=== PATIENT | female | born 1945 | race Caucasian/White ===

== ENCOUNTER 2017-07-29 10:14 | Emergency (ER) | payer MEDICARE, OTHER ==
[2017-07-29 10:46] LABS: BILIRUBIN,URINE NEGATIVE (NEGATIVE); PH,URINE 7.5 PH (5.0-7.5)
[2017-07-29 10:49] LABS: UA CHARGE (STRIP ONLY) YES; UR CULTURE IF IND NOT INDICATED
--- NOTE | 2017-07-29 11:57 | ED Physician Documentation ---
PD HPI ABD PAIN - Stated complaint Stated Complaint: R KIDNEY PAIN - Chief complaint Chief Complaint: Abd Pain - History obtained from History obtained from: Patient - History of Present Illness Timing - onset: How many days ago (2) Timing - duration: Days (2) Timing - details: Gradual onset, Still present, Waxing and waning Quality: Cramping, Aching, Pain Radiation: Right flank Improved by: No: Eating, Position Worsened by: No: Eating, Moving, Breathing, Position, Palpation Associated symptoms: No: Fever, Nausea, Vomiting, Diarrhea, Dysuria, Hematuria, Chest pain, Near syncope / syncope, Loss of appetite Similar symptoms before: Diagnosis (kidney stones) Recently seen: Not recently seen Review of Systems Constitutional: denies: Fever, Chills Nose: denies: Rhinorrhea / runny nose, Congestion Throat: denies: Sore throat Cardiac: denies: Chest pain / pressure, Palpitations Respiratory: denies: Dyspnea, Cough GI: denies: Abdominal Pain, Nausea, Vomiting, Diarrhea : denies: Dysuria, Frequency, Hematuria, Discharge Skin: denies: Rash, Lesions Neurologic: denies: Focal weakness, Numbness PD PAST MEDICAL HISTORY - Past Medical History Past Medical History: Yes Cardiovascular: Hypertension, High cholesterol GI: GERD : Kidney stones - Past Surgical History Past Surgical History: Yes Ortho: Spine surgery /[employer]: Hysterectomy - Present Medications Home Medications: Ambulatory Orders Medication Instructions Recorded Confirmed Atorvastatin [Lipitor] 1 tab PO DAILY 05/19/16 07/29/17 Losartan [Cozaar] 1 tab PO DAILY 05/19/16 07/29/17 HYDROcod/ACETAM 5/325 [[place] 5/325] 1 tab PO Q6H PRN #15 tablet 07/29/17 Methocarbamol [Robaxin] 500 mg PO TID #25 tablet 07/29/17 Naproxen [Naprosyn] 500 mg PO BID #20 tablet 07/29/17 - Allergies Allergies/Adverse Reactions: Allergies Allergy/AdvReac Type Severity Reaction Status Date / Time No Known Drug Allergies Allergy Verified 07/29/17 10:29 - Social History Does the pt smoke?: No Smoking Status: Never smoker Does the pt drink ETOH?: Yes Does the pt have substance abuse?: No - Immunizations Immunizations are current?: Yes PD ED PE NORMAL - Vitals Vital signs reviewed: Yes - General General: Alert and oriented X 3, No acute distress, Well developed/nourished - HEENT HEENT: Moist mucous membranes, Pharynx benign - Neck Neck: Supple, no meningeal sign, No adenopathy - Cardiac Cardiac: RRR, No murmur - Respiratory Respiratory: Clear bilaterally - Abdomen Abdomen: Normal bowel sounds, Soft, Non tender, Non distended, No organomegaly - Female Female : Deferred - Rectal Rectal: Deferred - Back Back: No spinal TTP, Other (right CVA tender without guarding. No rash nor sores.) - Derm Derm: Normal color, Warm and dry, No rash - Extremities Extremities: No deformity, No tenderness to palpate, Normal ROM s pain, No edema , No calf tenderness / cord - Neuro Neuro: Alert and oriented X 3, No motor deficit, Normal speech Results - Vitals Vitals: Vital Signs - 24 hr 07/29/17 07/29/17 07/29/17 10:27 11:59 13:22 Temperature 35.6 C L 36.9 C 36.6 C Heart Rate 68 63 76 Respiratory 14 16 16 Rate Blood Pressure 142/90 H 138/85 H 132/84 H O2 Saturation 100 95 99 07/29/17 14:18 Temperature 36.9 C Heart Rate 71 Respiratory 16 Rate Blood Pressure 133/60 H O2 Saturation 98 Oxygen O2 Source Room air - Labs Labs: Laboratory Tests 07/29/17 10:36 Urine Color YELLOW Urine Clarity CLEAR Urine pH 7.5 Ur Specific Shannon 1.010 Urine Protein NEGATIVE Urine Glucose (UA) NEGATIVE Urine Ketones NEGATIVE Urine Occult Blood NEGATIVE Urine Nitrite NEGATIVE Urine Bilirubin NEGATIVE Urine Urobilinogen 0.2 (NORMAL) Ur Leukocyte Esterase NEGATIVE Ur Microscopic Review NOT INDICATED Urine Culture Comments NOT INDICATED - Rads (name of study) KUB CT Radiology: Prelim report reviewed (no acute finding to support cause of pain), EMP read contemporaneously PD MEDICAL DECISION MAKING - ED course Complexity details: reviewed results, considered differential, d/w patient Departure - Departure Disposition: 01 Home, Self Care Clinical Impression: Right flank pain Condition: Stable Record reviewed to determine appropriate education?: Yes Instructions: ED Flank Pain Uncertain Cause Follow-Up: Waleska Ely MD [Primary Care Provider] - [facility] [place] [Provider Group] [facility] [Provider Group] Prescriptions: Naproxen [Naprosyn] 500 mg PO BID #20 tablet HYDROcod/ACETAM 5/325 [[place] 5/325] 1 tab PO Q6H PRN #15 tablet PRN Reason: Pain Methocarbamol [Robaxin] 500 mg PO TID #25 tablet Comments: The CT scan did not show any obvious cause for the pain. No kidney stones, abscesses, tumors, aneurysms, and the urine test did not show any signs of infection. Consider nerve pain or musculoskeletal pain as possibilities. Try naproxen twice daily for the next 7-10 days and be sure to take it with some food. Methocarbamol muscle relaxant for spasms and stiffness. Add Tylenol or hydrocodone if needed for pain. Recheck with primary care or one of the local clinics in about 1 week, call for an appointment. Discharge Date/Time: 07/29/17 14:18
--- NOTE | 2017-07-29 13:42 | CT Preliminary Report ---
Exam: CT KUB IMPRESSION: A 2 mm nonobstructing stone in the upper pole of the right kidney. [facility] SITE ID: [id number]
--- NOTE | 2017-07-29 13:45 | CT Report ---
EXAM: CT ABDOMEN AND PELVIS (CT KUB) EXAM DATE: 07/29/2017 12:32 PM. CLINICAL HISTORY: Right flank pain, history of stones. COMPARISONS: Abdomen and pelvis CT of 05/19/2016. TECHNIQUE: Routine axial helical CT imaging was performed through the abdomen and pelvis without IV c ontrast. Reconstructions: Coronal and sagittal. In accordance with CT protocol optimization, one or more of the following dose reduction techniques w ere utilized for this exam: automated exposure control, adjustment of mA and/or KV based on patient s ize, or use of iterative reconstructive technique. FINDINGS: Lung Bases: Minimal bibasilar dependent atelectasis. Normal heart size. No pericardial effusion. Right Kidney/Ureter: Nonobstructing 2 mm stone in the upper pole of the right kidney. No hydrouretero nephrosis. Unchanged minimal, nonspecific perinephric fat stranding. Left Kidney/Ureter: Hypoattenuating 1.2 cm lesion in the interpolar region of the left kidney, stable , previously characterized as a cyst. No stones. No hydroureteronephrosis. Minimal nonspecific perine phric fat stranding, stable. Other Solid Organs: Stable 1.2 cm hypoattenuating lesion in the left hemiliver. Noncontrast appearanc e of the spleen, pancreas, and adrenal glands are normal. Gallbladder/Bile Ducts: Unremarkable. Peritoneal Cavity: No free fluid, free air or macarena adenopathy. Bowel is grossly unremarkable. Tiny f at-containing umbilical hernia, stable. Pelvic Organs: No bladder stones or wall thickening. Prior hysterectomy.. Vasculature: Mild aorto biiliac atherosclerosis without aneurysm. Other: Stable, severe degenerative disk disease throughout the thoracolumbar spine. Prior diskectomy and instrument spinal fusion procedure at L5-S1. 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 IMPRESSION: A 2 mm nonobstructing stone in the upper pole of the right kidney. [facility] Referring Provider Line: [phone] SITE ID: [id number]
[2017-07-29 14:19] VITALS: BP 133/60
== END 2017-07-29 14:18 | disposition home or self-care (01) ==
LOC: ED 10:14
DX: R10.31 Right lower quadrant pain (principal); I10 Essential (primary) hypertension; Z87.442 Personal history of urinary calculi
CPT/HCPCS: 74176; 81001; 81003; 87086; 99283

== ENCOUNTER 2018-11-26 09:51 | Outpatient (CLI) | payer MEDICARE, OTHER ==
--- NOTE | 2018-11-27 10:07 | DEXA Report ---
Reason: ENCOUNTER FOR SCREENING FOR OSTEOPOROSIS Procedure Date: 11/26/2018 Accession Number: [id number] / [id number] Procedure: DEX - Dexa Spine and/or Hip CPT Code: FULL RESULT: EXAM: Dexa Spine and/or Hip DATE: 11/26/2018 10:40 AM CLINICAL HISTORY: ENCOUNTER FOR SCREENING FOR OSTEOPOROSIS TECHNIQUE: Dual energy x-ray absorptiometry (DXA) was performed on a Bactest System. Regions measured are the AP Spine, femoral neck, and if needed forearm. COMPARISON: None. In accordance with the International Society for Clinical Densitometry (ISCD) guidelines, data from previous exams may be reanalyzed using current recommendations and techniques. This is done to allow a more accurate basis for comparison with the current study. FINDINGS: The data for the lumbar spine is as follows: BMD (g/cm/cm) T-SCORE Z-SCORE REGION L1 1.119 -0.1 1.0 L2 1.343 1.2 2.2 L3 1.530 2.8 3.8 L4 1.425 1.9 2.9 TOTAL NOTE: All evaluable vertebrae are used for classification The data for the hip is as follows: BMD (g/cm/cm) T-SCORE Z-SCORE REGION Neck 0.804 -1.7 -0.3 TOTAL 0.877 -1.0 0.1 NOTE: The femoral neck or total proximal femur, whichever is lowest, is used for classification. IMPRESSION: THE WHO CLASSIFICATION BASED ON THE INTERNATIONAL REFERENCE STANDARD IS OSTEOPENIA. THE FRACTURE RISK IS INCREASED. RECOMMENDATION: Patients with diagnosis of osteoporosis or osteopenia should have regular bone mineral density assessment. For those eligible for Medicare, routine testing is allowed once every 2 years. Testing frequency can be increased for patients who have rapidly progressing disease or for those who are receiving medical therapy to restore bone mass. COMMENT: World Health Organization (WHO) definitions for osteoporosis and osteopenia: NORMAL BMD: T-score at -1.0 or higher, fracture risk is low OSTEOPENIA BMD: T-score between -1.0 and -2.5, fracture risk is increased. OSTEOPOROSIS BMD: T-score at -2.5 or lower, fracture risk is high. National Osteoporosis Foundation recommends: 1. Obtain adequate dietary calcium (at least 1200 mg per day) and vitamin D (400-800 international units per day). 2. Participate, as appropriate, in regular weightbearing and muscle-strengthening exercise. 3. Avoid tobacco use and reduce alcohol and caffeine intake. 4. For more detailed information see the website at www.NOF.org.
== END 2018-11-26 09:52 | disposition home or self-care (01) ==
LOC: DI 09:51
PROVIDERS: ATTEND Internal Medicine
DX: Z13.820 Encounter for screening for osteoporosis (principal); M85.88 Other specified disorders of bone density and structure, other site; Z78.0 Asymptomatic menopausal state
CPT/HCPCS: 77080

== ENCOUNTER 2020-08-25 12:36 | Outpatient (CLI) | payer MEDICARE, OTHER | END 2020-08-25 12:37 | disposition home or self-care (01) | LOC: COV 12:36 | PROVIDERS: ATTEND Family Medicine | DX: R05 Cough (principal); M79.10 Myalgia, unspecified site; R68.83 Chills (without fever); J02.9 Acute pharyngitis, unspecified; J34.89 Other specified disorders of nose and nasal sinuses; Z20.828 Contact with and (suspected) exposure to other viral communicable diseases ==